=== PATIENT | male | born 1985 | race Caucasian/White ===

== ENCOUNTER 2024-03-27 22:41 | Emergency (ER) | payer SELFPAY ==
[2024-03-27] MEDS ORDERED: Divalproex Sodium 250 MG DR.TAB ONE (23:25)
[2024-03-27 23:28] LABS: Hematocrit 41.8 % (42.0-52.0); Hemoglobin 14.3 g/dL (14.0-18.0); Mean Corpuscular HGB CONC 34.2 g/dL (32.0-36.0); Mean Corpuscular Hemoglobin 33.1 pg (27.0-31.0); Mean Corpuscular Volume 96.8 fL (78.0-98.0); Mean Platelet Volume 9.2 fL (7.4-10.4); Platelet Count 275 10x3/uL (130-400); RBC Distribution Width 13.6 % (11.5-14.5); Red Blood Cell (RBC) Count 4.32 mill/uL (4.70-6.10)
[2024-03-27] MEDS ORDERED: carBAMazepine 200 MG TAB PO SCH (23:30)
[2024-03-27 23:43] LABS: Acetaminophen Less than 10 mcg/mL (Less than 10); Alcohol Less than 10.0 mg/dL (Less than 10); Salicylate Less than 8.0 mg/dL (Less than 8.0)
[2024-03-27 23:44] LABS: ALT (SGPT) 17 U/L (Less than 45); AST (SGOT) 18 U/L (11-34); Albumin 3.5 g/dL (3.1-4.5); Alkaline Phosphatase 102 U/L (40-110); Anion Gap 15 mmol/L (10-20); BUN (Urea Nitrogen) 16 mg/dL (8.9-20.6); Bilirubin, Total 0.2 mg/dL (0.3-1.2); Calc. Creatinine Clearance 0 mL/min (70-130); Calcium 8.8 mg/dL (7.8-10.44); Carbon Dioxide 21 mmol/L (22-29); Chloride 108 mmol/L (98-107); Estimated GFR 79; Globulin 3.5 g/dL (2.4-3.5); Glucose 129 mg/dL (70-105); Potassium 3.6 mmol/L (3.5-5.1); Sodium 140 mmol/L (136-145)
[2024-03-27 23:49] LABS: Eosinophils 31 % (0-10); Lymphocytes 9 % (21-51); Monocytes 5 % (0-10); Neutrophil 54 % (42-75); Platelet Adequacy Comment Platelets Normal; RBC Morphology Within Normal Limits; Reactive Lymphocytes 1 % (0-10)
== END 2024-03-28 01:46 ==
LOC: ERS 22:41
DX: R56.9 Unspecified convulsions (principal); F17.210 Nicotine dependence, cigarettes, uncomplicated
CPT/HCPCS: 36415; 80053; 80307; 83735; 85025; 93005; 99284

== ENCOUNTER 2024-03-28 11:09 | Emergency (ER) | payer SELFPAY ==
[2024-03-28 13:25] LABS: Hematocrit 45.2 % (42.0-52.0); Mean Corpuscular HGB CONC 33.2 g/dL (32.0-36.0); Mean Corpuscular Hemoglobin 32.5 pg (27.0-31.0); Mean Corpuscular Volume 97.8 fL (78.0-98.0); Mean Platelet Volume 9.2 fL (7.4-10.4); Platelet Count 285 10x3/uL (130-400); RBC Distribution Width 13.7 % (11.5-14.5); Red Blood Cell (RBC) Count 4.62 mill/uL (4.70-6.10)
[2024-03-28 13:53] LABS: ALT (SGPT) 16 U/L (Less than 45); AST (SGOT) 18 U/L (11-34); Albumin 3.7 g/dL (3.1-4.5); Alkaline Phosphatase 102 U/L (40-110); Anion Gap 13 mmol/L (10-20); BUN (Urea Nitrogen) 14 mg/dL (8.9-20.6); Bilirubin, Total 0.3 mg/dL (0.3-1.2); Calc. Creatinine Clearance 0 mL/min (70-130); Calcium 9.2 mg/dL (7.8-10.44); Carbon Dioxide 27 mmol/L (22-29); Chloride 105 mmol/L (98-107); Estimated GFR 84; Globulin 3.5 g/dL (2.4-3.5); Glucose 83 mg/dL (70-105); Potassium 3.6 mmol/L (3.5-5.1); Protein, Total 7.2 g/dL (6.0-8.3); Sodium 141 mmol/L (136-145)
[2024-03-28 14:20] LABS: Anisocytosis SLIGHT = 6-15 cells HPF (0-5); Eosinophils 31 % (0-10); Lymphocytes 13 % (21-51); Monocytes 6 % (0-10); Neutrophil 48 % (42-75); Platelet Adequacy Comment Platelets Normal; RBC Morphology Within Normal Limits; Reactive Lymphocytes 2 % (0-10); Smudge Cells 15.6 %
== END 2024-03-28 18:35 ==
LOC: ERS 11:09
DX: R56.9 Unspecified convulsions (principal); S00.03XA Contusion of scalp, initial encounter; F17.210 Nicotine dependence, cigarettes, uncomplicated; Z55.6 Problems related to health literacy; Z79.899 Other long term (current) drug therapy; X58.XXXA Exposure to other specified factors, initial encounter
CPT/HCPCS: 36415; 70450; 72125; 80053; 85025; 93005

== ENCOUNTER 2024-04-08 05:26 | Inpatient (IN) | payer OTHER ==
[2024-04-08 06:40] VITALS: BMI 22.8
[2024-04-08] MEDS ORDERED: Ondansetron ODT 4 MG TAB PO PRN (06:43)
[2024-04-08] MEDS ORDERED: Ondansetron PF 4 MG/2 ML Vial IVP PRN ×2 (06:43→08:16)
[2024-04-08] MEDS ORDERED: Calcium Carbonate 500 MG ChewTAB PO PRN (06:43)
[2024-04-08 06:55] LABS: Hematocrit 42.4 % (42.0-52.0); Hemoglobin 14.1 g/dL (14.0-18.0); Mean Corpuscular HGB CONC 33.3 g/dL (32.0-36.0); Mean Corpuscular Hemoglobin 32.4 pg (27.0-31.0); Mean Corpuscular Volume 97.5 fL (78.0-98.0); Mean Platelet Volume 9.1 fL (7.4-10.4); Platelet Count 302 10x3/uL (130-400); RBC Distribution Width 13.4 % (11.5-14.5); Red Blood Cell (RBC) Count 4.35 mill/uL (4.70-6.10)
[2024-04-08 07:19] LABS: Anisocytosis MODERATE=16-30 cells HPF (0-5); Eosinophils 36 % (0-10); Lymphocytes 27 % (21-51); Macrocytosis SLIGHT = 6-15 cells HPF (0-5); Monocytes 9 % (0-10); Neutrophil 27 % (42-75); Platelet Adequacy Comment Platelets Normal; Polychromasia SLIGHT = 2-3 cells HPF (0-2); Reactive Lymphocytes 1 % (0-10)
[2024-04-08 07:33] LABS: Anion Gap 11 mmol/L (10-20); BUN (Urea Nitrogen) 8 mg/dL (8.9-20.6); Calc. Creatinine Clearance 111 mL/min (70-130); Calcium 8.7 mg/dL (7.8-10.44); Carbon Dioxide 26 mmol/L (22-29); Chloride 107 mmol/L (98-107); Estimated GFR 112; Glucose 86 mg/dL (70-105); Sodium 140 mmol/L (136-145)
[2024-04-08] MEDS ORDERED: carBAMazepine 200 MG TAB PO SCH (08:00)
[2024-04-08] MEDS ORDERED: Polyethylene Glycol 3350 17 GM Packet PO PRN (08:16)
[2024-04-08] MEDS ORDERED: Docusate 100 MG CAP PO PRN (08:16)
[2024-04-08] MEDS ORDERED: Valproate Sodium 500 MG/5 ML VIAL IVPB SCH ×2 (08:46→14:00)
[2024-04-08] MEDS ORDERED: levETIRAcetam 500 MG (5 mL) VIAL SLOW IVP SCH (09:00)
[2024-04-08] MEDS ORDERED: Divalproex Sodium 500 MG ER.TAB PO SCH (09:00)
[2024-04-08] MEDS: Lorazepam 2 MG/ML VIAL SLOW IVP PRN (09:23)
[2024-04-08] MEDS ORDERED: Nicotine 7 MG PATCH TD PRN (09:47)
[2024-04-08] MEDS: Valproate Sodium 500 MG/5 ML VIAL IVPB SCH (10:24)
[2024-04-08] MEDS: DULoxetine 60 MG CAP PO SCH (10:50)
[2024-04-08] MEDS: Famotidine 20 MG TAB PO SCH (10:50)
[2024-04-08] MEDS: Enoxaparin 40 MG (0.4 mL) SYRINGE SC SCH (10:50)
[2024-04-08] MEDS: Gabapentin 400 MG CAP PO SCH (10:51)
[2024-04-08] MEDS: Ketorolac Tromethamine 30 MG (1 mL) VIAL IVP SCH (12:14)
[2024-04-08] MEDS: Lactated Ringer's 1,000 ML IV SCH (12:14)
[2024-04-08 12:40] VITALS: BP 115/77; TEMP 97.8
== END 2024-04-08 15:09 | disposition left against medical advice (07) | DRG 101 ==
LOC: 2SE 06:27 → OBSVTOIN 08:57 → IMCU/EMU 10:16
PROVIDERS: ADMIT Student in an Organized Health Care Education/Training Program; ATTEND Student in an Organized Health Care Education/Training Program
PROC: XX20X89 Monitoring of Brain Electrical Activity, Computer-aided Detection and Notification, New Technology Group 9 (ICD-10-PCS; principal; 2024-04-08)
DX: G40.919 Epilepsy, unspecified, intractable, without status epilepticus (principal); F32.A Depression, unspecified; F41.9 Anxiety disorder, unspecified; F15.10 Other stimulant abuse, uncomplicated; M79.10 Myalgia, unspecified site; Z88.8 Allergy status to other drugs, medicaments and biological substances; Z72.0 Tobacco use; Z98.890 Other specified postprocedural states; Z86.69 Personal history of other diseases of the nervous system and sense organs
CPT/HCPCS: 36416; 80048; 85025; 95812; J1885; J2060; J7120

== ENCOUNTER 2024-04-08 18:41 | Emergency (ER) | payer OTHER ==
[2024-04-08 20:46] LABS: Hematocrit 43.2 % (42.0-52.0); Hemoglobin 14.5 g/dL (14.0-18.0); Mean Corpuscular HGB CONC 33.6 g/dL (32.0-36.0); Mean Corpuscular Hemoglobin 32.6 pg (27.0-31.0); Mean Corpuscular Volume 97.1 fL (78.0-98.0); Platelet Count 313 10x3/uL (130-400); RBC Distribution Width 13.2 % (11.5-14.5); Red Blood Cell (RBC) Count 4.45 mill/uL (4.70-6.10)
[2024-04-08 21:06] LABS: ALT (SGPT) 13 U/L (Less than 45); AST (SGOT) 24 U/L (11-34); Albumin 3.5 g/dL (3.1-4.5); Alkaline Phosphatase 88 U/L (40-110); Anion Gap 13 mmol/L (10-20); BUN (Urea Nitrogen) 8 mg/dL (8.9-20.6); Bilirubin, Total 0.2 mg/dL (0.3-1.2); Calc. Creatinine Clearance 0 mL/min (70-130); Calcium 9.1 mg/dL (7.8-10.44); Carbon Dioxide 23 mmol/L (22-29); Chloride 105 mmol/L (98-107); Estimated GFR 116; Glucose 96 mg/dL (70-105); Potassium 3.8 mmol/L (3.5-5.1); Protein, Total 7.5 g/dL (6.0-8.3); Sodium 137 mmol/L (136-145)
[2024-04-08 21:22] LABS: Eosinophils 20 % (0-10); Lymphocytes 10 % (21-51); Monocytes 10 % (0-10); Neutrophil 57 % (42-75); Platelet Adequacy Comment Platelets Normal; Polychromasia SLIGHT = 2-3 cells HPF (0-2); RBC Morphology Within Normal Limits; Reactive Lymphocytes 2 % (0-10); Smudge Cells 21.9 %
== END 2024-04-08 22:57 ==
LOC: ERS 18:41
DX: G40.909 Epilepsy, unspecified, not intractable, without status epilepticus (principal); Z59.00 Homelessness unspecified
CPT/HCPCS: 36415; 84146; 93005